=== PATIENT | female | born 1960 | race Caucasian/White ===

== ENCOUNTER → 2021-12-29 09:33 | Outpatient (CLI) | payer BC, SELFPAY ==
--- NOTE | ~2021-12-29 | MR_ITS ---
EXAMINATION: MR knee RT wo con DATE: 12/29/2021 10:29 INDICATION: Chronic right knee pain TECHNIQUE: Magnetic resonance imaging (MRI) of the right knee was performed without intravenous contr ast. Sequences included coronal PD-weighted FSE, coronal PD-weighted FS FSE, sagittal T2-weighted FS E, sagittal PD-weighted FS FSE and axial PD weighted fat saturated FSE. COMPARISON: None. FINDINGS: Line evaluation mildly limited by motion artifact or blurring on multiple sequences despite repetition of the axial and sagittal sequences. Medial compartment: There is medial extrusion of the medial meniscal body. There is a radial tear involving the inferior two thirds of the meniscus at the meniscal body. Specificities decreased by the motion artifact there appears to be additional longitudinal horizontal tear plane extending posteriorly from a radial tear into the posterior horn. Deep chondral ulceration with small central subchondral osteophyte and exte nsive subarticular edema-like marrow signal change at the anterior weightbearing medial femoral condy le. Additional deep chondral ulceration with subarticular edema-like signal change at the anteromedia l aspect of the medial tibial plateau. Less severe partial thickness cartilage loss without degenerat pedrito subchondral changes at the central weightbearing medial femoral condyle. Lateral compartment: Lateral meniscus is normal. Articular cartilage is normal. Patellofemoral compartment: Extensive deep chondral ulceration with suggestion of some early cortical remodeling and scattered fo ci of subarticular edema-like marrow signal change at the medial patellar facet, caudal two thirds of the apical ridge, caudal half of the lateral facet and cephalad aspect of the medial trochlea. Less severe partial thickness chondral ulceration and fissuring without degenerative subchondral changes a t the trochlear groove. Ligaments and tendons: Anterior and posterior cruciate ligaments are normal. The medial collateral ligament and fibular ileana ateral ligament complex are normal. The extensor mechanism is normal. The visualized medial and later al hamstring tendons as well as the iliotibial band are normal. Fluid: Small left knee joint effusion. Moderate to large Burgess's cyst measuring 6.7 cm craniocaudally and 3. 1 x 1.8 cm in maximal transaxial dimensions. No loose osteochondral bodies identified. Osseous/other: Small osseous excrescences with cortical and medullary continuity consistent with osteochondromas gabrielle ng the medial metaphysis of the tibia with more subtle very small excrescence at the anteromedial met aphysis. Possible additional osteochondroma versus hypertrophic change at Genaro's tubercle. No fract ure or pathologic marrow replacing process. IMPRESSION: 1. Complex medial meniscal tear. 2. 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 3. Small knee joint effusion and moderate to large Burgess's cyst. 4. 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 Reviewed, dictated and finalized at location A. IMPRESSION: 1. Complex medial meniscal tear. 2. Severe patellofemoral and moderate to severe medial compartment osteoarthrit is with high-grade chondromalacia in both compartments. 3. Small knee joint effusion and moderate to large Burgess's cyst. 4. 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
== END ==
PROVIDERS: PCP Hospitalist; Visit Provider Orthopaedic Surgery
DX: S83.231A Complex tear of medial meniscus, current injury, right knee, initial encounter (principal); M17.11 Unilateral primary osteoarthritis, right knee; M25.461 Effusion, right knee
CPT/HCPCS: 73721